=== PATIENT | male | born 1960 | race Two or more races ===

== ENCOUNTER 2019-06-19 08:19 | Outpatient (CLI) | payer OTHER | END 2019-06-19 08:43 | disposition home or self-care (01) | LOC: NUCLEAR 08:19 | DX: C15.8 Malignant neoplasm of overlapping sites of esophagus (principal) | CPT/HCPCS: 78815; A9552 ==

== ENCOUNTER 2024-01-06 08:31 | Outpatient (CLI) | payer OTHER | END 2024-01-06 08:37 | disposition home or self-care (01) | LOC: LAB 08:31 | PROVIDERS: ATTEND Family Medicine | DX: M54.11 Radiculopathy, occipito-atlanto-axial region (principal) ==

== ENCOUNTER 2024-01-06 08:52 | Outpatient (CLI) | payer OTHER | END 2024-01-06 08:58 | disposition home or self-care (01) | LOC: MRI 08:52 | PROVIDERS: ATTEND Family Medicine | DX: M54.50 Low back pain, unspecified (principal) | CPT/HCPCS: 72158 ==

== ENCOUNTER → 2025-02-26 | Emergency (ER) | payer OTHER ==
[~2025-02-26] VITALS: Ht 177.8 cm; Wt 72.6 kg
[~2025-02-26] MED LIST: 0.9 % SODIUM CHLORIDE 1,000 ML IV SCH; DIATRIZOATE MEGLUMINE, SODIUM 30 ML BOTTLE ONE; FAMOTIDINE/PF 20 MG/2 ML VIAL IV PUSH ONE; FAMOTIDINE/PF 20 MG/2 ML VIAL ONE; HORIZANT300 MG PO; HYOSCYAMINE SULFATE 0.125 MG TAB.SUBL ONE; HYOSCYAMINE SULFATE 0.125 MG TAB.SUBL PO ONE; LEXAPRO20 MG PO; PEPCID40 MG PO; PROTONIX40 M1 PO; SUCRALFATE 1 G TABLET PO ONE; WELLBUTRIN SR100 MG PO
[2025-02-26 12:46] LABS: BASO % 1.0 % (0.1-1.2); EOS # 0.11 (0.04-0.54); EOS % 2.3 % (0.7-7.0); LYMPH # 1.45 (1.18-3.74); LYMPH % 30.4 % (19.3-53.1); MEAN PLATELET VOLUME 9.50 fl (9.4-12.4); MONO # 0.80 (0.24-0.82); NEUT # 2.35 (1.56-6.13); NEUT % 49.3 % (34.0-71.1); RED CELL DISTRIBUTION WIDTH 14.1 % (11.6-14.4)
[2025-02-26 12:47] LABS: MONO % 16.8 % (4.7-12.5)
[2025-02-26 13:22] LABS: ALT/SGPT 30.0 U/L (12-78); AST/SGOT 21.0 U/L (15-37); BILIRUBIN TOTAL 0.4 mg/dL (0.3-1.2); BUN CREA RATIO 18.0 (7.0-25.0); CREATININE SERUM 1.31 mg/dL (0.70-1.30); GFR 55.44; GLOBULINA 3.1 G/DL (2.4-3.5); GLUCOSE FASTING 107.0 mg/dL (65-100); OSMOLALITY SERUM 287.0 MOSM/KG (275-295)
[2025-02-26 14:24] LABS: URINE APPEARANCE Clear; URINE BILIRRUBIN Negative (NEGATIVE); URINE BLOOD Negative; URINE COLOR Yellow; URINE GLUCOSE Negative (NEGATIVE); URINE KETONE Trace (NEGATIVE); URINE LEUKOCYTE Negative; URINE NITRATE Negative; URINE PROTEIN Negative (NEGATIVE); URINE UROBILINOGEN 0.2 E.U./dl
[2025-02-26 14:29] LABS: URINE BACTERIA 4.7 uL (0.0-1933); URINE EPITHELIAL CELLS 2.1 uL (0.0-38.8); URINE RBC 3.6 uL (0.0-20.8); URINE WBC 1.9 uL (0.0-23.2)
[2025-02-26 14:38] LABS: URINE CAST 0.14 uL (0.0-1.40)
== END | disposition left against medical advice (07) ==
LOC: ER 10:55
PROVIDERS: Emergency Medicine
DX: R10.12 Left upper quadrant pain (principal); N20.0 Calculus of kidney; N28.1 Cyst of kidney, acquired; K76.0 Fatty (change of) liver, not elsewhere classified; K59.00 Constipation, unspecified; Z85.89 Personal history of malignant neoplasm of other organs and systems; F32.A Depression, unspecified
CPT/HCPCS: 36415; 74176; 96365; 99284; J3490